=== PATIENT | male | born 2000 | race Hispanic/Latino ===

== ENCOUNTER 2021-06-27 21:45 | Emergency (ER) | payer MEDICAID, OTHER ==
[~2021-06-27] VITALS: Ht 170.2 cm; Wt 138.3 kg
[2021-06-27 22:04] VITALS: BP 125/81
[2021-06-27] MEDS ORDERED: CYCLOBENZAPRINE HCL 10 MG TABLET PO ONE (22:30)
[2021-06-27] MEDS ORDERED: KETOROLAC 60 MG VIAL (30MG/ML) IM ONE (22:30)
[2021-06-27] MEDS ORDERED: KETOROLAC 60 MG VIAL (30MG/ML) ONE (22:32)
[2021-06-27] MEDS ORDERED: CYCLOBENZAPRINE HCL 10 MG TABLET ONE (22:33)
[2021-06-27] MEDS ORDERED: NAPR-1180 PO (22:50)
[2021-06-27] MEDS ORDERED: CYCL10 PO (22:50)
== END 2021-06-27 23:11 | disposition home or self-care (01) ==
LOC: EDH 21:45
DX: S39.012A Strain of muscle, fascia and tendon of lower back, initial encounter (principal); V49.49XA Driver injured in collision with other motor vehicles in traffic accident, initial encounter; Y93.89 Activity, other specified; Y92.410 Unspecified street and highway as the place of occurrence of the external cause; Y99.8 Other external cause status
CPT/HCPCS: 72100; 96372; 99283; J1885

== ENCOUNTER 2024-08-17 10:15 | Emergency (ER) | payer SELFPAY ==
[~2024-08-17] VITALS: Ht 172.7 cm; Wt 113.4 kg
[~2024-08-17 10:15] MED LIST: CYCL10TA16 PO; NAPR-1180 PO
--- NOTE | 2024-08-17 11:04 | ERN ---
General Chief Complaint: Abscess Stated Complaint: LEFT UNDER ARM ABSCESS Time Seen by MD: 10:16 History of Present Illness Initial Comments Mr. Manning is a 24-year-old male who came to ER complaints of pain and swelling in the left axillary area. Patient reports noticing the abscess a week ago. He denies fever or chills or shaving. Allergies: Coded Allergies: No Known Allergies (Unverified Allergy, Unknown, 06/27/21) Home Meds Active Scripts Ibuprofen (Ibuprofen) 600 Mg Tablet, 600 MG PO Q6H PRN for PAIN, #30 TAB Prov:DWAINE CONCEPCION MD 08/17/24 Cephalexin Monohydrate (Keflex) 500 Mg Cap, 500 MG PO BID for 10 Days, #20 CAP Prov:DWAINE CONCEPCION MD 08/17/24 Cyclobenzaprine HCl (Flexeril) 10 Mg Tab, 10 MG PO BIDAC, #30 TAB Prov:PÉREZ ELIZABETH 06/27/21 Naproxen (Naprosyn) 500 Mg Tablet, 500 MG PO BIDPC, #60 TAB Prov:PÉREZ ELIZABETH 06/27/21 Past Medical History Past Medical History: No Pertinent History Past Surgical History: None Surgical History Other: EAR SX ROS Dictation Constitutional: No appetite loss, No fevers, chills , No night sweats, No weakness, fatigue Eye: No vision change, No redness, pain or discharge ENT: No hearing loss, ear pain or discharge, No nose bleeds, No sore throat, Neck: No swelling. pain or stiffness Respiratory: No cough, shortness of breath, wheezing Cardiovascular: No chest pain,, palpitations, dyspnea, No edema Gastrointestinal: No abdominal pain, No nausea, vomiting, No diarrhea, constipation Genitourinary: No painful urination, No blood in urine, No urinary incontinence, No frequency or urgency Musculoskeletal: No joint pain, muscle pain, swelling or stiffness Neurological: No numbness, tingling, No weakness, tremors or seizures Physical Exam Physical Exam Dictation General: Alert & Oriented, No acute distress. EENT: No conjunctival redness or discharge noted Tympanic membranes are clear, Normal hearing, Oral mucosa is moist, No pharyngeal erythema, No nasal discharge, No oral lesions. Neck: Non-tender, No jugular vein distention, No lymphadenopathy, No thyromegaly, Supple. Respiratory: Lungs are clear to auscultation, Respirations are non-labored, Breath sounds are equal, No chest wall tenderness, _. Cardiovascular: Normal rate, Normal rhythm, No murmur, Good pulses equal in all extremities, Normal peripheral perfusion, No edema. Gastrointestinal: Soft, Non-tender, Non-distended, Normal bowel sounds, No organomegaly, _. Musculoskeletal: Normal range of motion, Normal strength, No tenderness, No swelling, No deformity, Normal gait. Integumentary: Fluctuant mass in axilla, Warm, Dry, [place]ge[place], Intact, No pallor, No rash. Neurologic: Alert, Oriented x4, Normal sensory, No focal defects MDM MDM: Differential diagnosis: abscess, cellulitis Rationale: Tests considered and ordered secondary to shared decision making include: labs, ECG and radiology Previous outside records reviewed: Old ER visits. Risk of complication and/or morbidity or mortality of patient management: None Medications-Per medication reconciliation Need for hospitalization: Patient does meet criteria for hospitalization. Need for emergency major/minor surgery: No There are no social concerns with this patient. Prescription drug management Prescriptions will include symptomatic care Patient's prior external medical records from other ER visits were reviewed by me as indicated. Prior testing and results from previous visits were reviewed. Prior tests were taken into account with medical decision making and resource utilization, independent historian/historians were used to obtain complete medical history. I independently interpreted the test that were performed, results were reviewed by me and considered findings on radiology if ordered. Medical management and examination interpretation discussions were had by me with other qualified healthcare professionals as indicated for the patient's care. ED Course Orders Procedure Category Date Status Time I&D Set Up Bedside CPOE 08/17/24 Transmitted (Er) 11:13 Lidocaine Hcl 1% 20ml PHA 08/17/24 Complete Vial (Lidocaine Hc 12:32 Lidocaine Hcl 1% 20ml PHA 08/17/24 Complete Vial (Lidocaine Hc 13:24 Hydrocodone/Apap PHA 08/17/24 Complete 5/325 (Sandgap 5/325mg) 13:45 Aerobic Culture JEB 08/17/24 Complete 14:15 Anaerobic Culture JEB 08/17/24 Complete 14:15 Vital Signs Date Time Temp Pulse Resp B/P (MAP) Pulse Ox O2 Delivery O2 Flow Rate FiO2 08/17/24 13:56 99.0 98 18 118/83 98 Room Air* 0 21 08/17/24 12:32 98.8 84 20 119/72 99 Room Air* 0 21 08/17/24 10:16 98.1 78 20 125/65 99 0 Incision and Drainage Incision and Drainage : Progress Incision and drainage Preparation Patient was positioned comfortably and the left axilla was cleaned with antiseptic solution Local anesthesia 1% lidocaine was administered to numb the area around the abscess. Incision A sterile drape was placed around the axilla Using a sterile scalpel, a linear incision was made over the most fluctuant area of the abscess. Care was taken to avoid damage to surrounding structures Drainage The cavity was explored using sterile blunt instrument Pus was expressed and suctioned out The cavity was irrigated with sterile saline and to ensure total drainage The incision was covered with a sterile dressing The patient was advised to keep the dressing clean and dry. They were instructed on signs of infection [ increased redness, swelling or discharge ]and advised to seek medical attention if these occur DX & DISP Disposition: Discharge Departure Impression: Primary Impression: Abscess of left axilla Critical Time: 45 minutes Condition: Stable Scripts Ibuprofen (Ibuprofen) 600 Mg Tablet 600 MG PO Q6H PRN for PAIN, #30 TAB Prov: DWANIE CONCEPCION MD 08/17/24 Cephalexin Monohydrate (Keflex) 500 Mg Cap 500 MG PO BID for 10 Days, #20 CAP Prov: DWAINE CONECPCION MD 08/17/24 Additional Instructions: Patient and the caregiver have been informed of all the diagnostic tests and the imaging conducted during the today's visit to the emergency room and has verbalized understanding of the results I have personally reviewed and interpreted all diagnostic exams performed here in the ER today as well as the vital signs documented by the nursing staff. The patient is now being discharged to home and should follow up with the primary care physician or the specialist as directed by the ER staff. Follow-up with primary care provider in 1 to 2 days. Take medications as directed here in the emergency room. Okay to continue home medications unless otherwise discussed during your visit in the emergency room today. Return to your nearest emergency room if symptoms worsen or if there is no improvement. Call 911 if you need immediate assistance. Take Tylenol or Motrin [id number] as needed and if no contraindications are present. Increase oral hydration. A wound culture or urine culture was ordered here in the emergency room department please follow-up with primary care provider and advise them to get repeat ports from our facility. If you had any Marlo wrap/splints that were applied here, please do not remove them until you see your primary care or specialty. Referrals: SELF,REFERRAL (PCP) I performed this substantive portion of this visit. I have reviewed and personally made and approve the management plan that is documented in the note by myself or the NEIL. I acknowledge full responsibility for the patient's management plan. DWAINE CONCEPCION MD Aug 17, 2024 11:03 TODD SERRANO MD Oct 01, 2024 12:48
[2024-08-17] MEDS: HYDROcodone/APAP 5/325 1 TAB TABLET PO ONE (13:49)
[2024-08-17] MEDS ORDERED: CEPH500B PO (13:51)
[2024-08-17] MEDS ORDERED: IBUP-2070 PO (13:51)
[2024-08-17 13:56] VITALS: BP 118/83; PULSE 98; RESP 18; TEMP 98.9; O2SAT 98
[2024-08-17] MEDS: LIDOCAINE HCL 1% 20 ML VIAL ONE ×2 (13:59)
== END 2024-08-17 14:06 | disposition home or self-care (01) ==
LOC: EDH 10:15
DX: L02.412 Cutaneous abscess of left axilla (principal); Z79.899 Other long term (current) drug therapy
CPT/HCPCS: 10060; 87070; 87076; 87086; 87186